=== PATIENT | female | born 1980 | race African-American/Black ===

== ENCOUNTER 2016-11-10 12:09 | Emergency (ER) | payer OTHER ==
[~2016-11-10] VITALS: Ht 160 cm; Wt 73.3 kg
[2016-11-10] MEDS ORDERED: XANAX2 MG PO (14:25)
[2016-11-10] MEDS ORDERED: HYDROXYUREA500 MG PO (14:26)
[2016-11-10] MEDS ORDERED: FOLIC ACID1 MG PO (14:26)
[2016-11-10 16:27] LABS: BASOPHIL COUNT 0.1 K/uL (0-0.1); EOSINOPHIL COUNT 0.1 K/uL (0-0.3); HEMATOCRIT 32.1 % (36.0-46.0); IMMATURE GRANULOCYTE (%) 0.4 % (0.0-0.7); INSTRUMENT ABS NEUTROPHIL CT 4.9 K/uL; MCH 32.5 PG (29.0-34.0); MCHC 34.3 G/DL (30.0-36.0); MEAN PLAT.VOLUME 9.1 uM^3 (9.5-12.4); MONOCYTE (%) 12.1 % (3-12); NEUTROPHIL (%) 61.4 % (45-76); NEUTROPHIL COUNT 4.9 K/uL (1.8-6.4); NRBC (%) 2.6 /100 WBC (0-0); PLATELET COUNT 439 K/uL (156-360); RBC DIS.WIDTH-CV 15.6 % (11.8-14.6); RBC DIS.WIDTH-SD 51.7 % (39-53); RED BLOOD COUNT 3.38 M/uL (3.80-5.20)
[2016-11-10 17:41] LABS: CHLORIDE 109 mEq/L (99-109); POTASSIUM 4.6 mEq/L (3.7-5.4); SODIUM 141 mEq/L (136-147)
[2016-11-10 17:44] LABS: GLUCOSE 76 mg/dL (70-99)
[2016-11-10 17:45] LABS: ANION GAP 8 MEQ/L (2-14)
[2016-11-10 17:47] LABS: ALKALINE PHOSPHATASE 93 IU/L (3-129); GFR ESTIMATE (CALCULATED) > 59 mL/min/
[2016-11-10 17:48] LABS: UREA NITROGEN (BUN) 8 mg/dL (9-23)
[2016-11-10] MEDS ORDERED: TRAMADOL HCL E100 M1 PO (18:17)
[2016-11-10] MEDS ORDERED: LORTAB 5-325 M1 EACH PO (18:33)
[2016-11-10 18:43] VITALS: BP 120/69
== END 2016-11-10 18:44 | disposition home or self-care (01) ==
LOC: EME 12:09
PROVIDERS: Nurse Practitioner Family
DX: M79.1 Myalgia (principal); K08.89 Other specified disorders of teeth and supporting structures; Z86.2 Personal history of diseases of the blood and blood-forming organs and certain disorders involving the immune mechanism; K03.81 Cracked tooth
CPT/HCPCS: 80053; 85025; 99281; 99285; J1200; J3010; J7030

== ENCOUNTER 2016-12-07 15:20 | Emergency (ER) | payer OTHER ==
[~2016-12-07] VITALS: Ht 160 cm; Wt 71.0 kg
[~2016-12-07 15:20] MED LIST: FOLIC ACID1 MG PO; HYDROXYUREA500 MG PO; LORTAB 5-325 M1 EACH PO; TRAMADOL HCL E100 M1 PO; XANAX2 MG PO
[2016-12-07 19:47] LABS: HEMATOCRIT 27.5 % (36.0-46.0); MCH 31.6 PG (29.0-34.0); MCHC 34.5 G/DL (30.0-36.0); MCV 91.4 FL (83-99); MEAN PLAT.VOLUME 8.7 uM^3 (9.5-12.4); NRBC (%) 0.4 /100 WBC (0-0); PLATELET COUNT 559 K/uL (156-360); RBC DIS.WIDTH-CV 12.8 % (11.8-14.6); RBC DIS.WIDTH-SD 41.7 % (39-53); RED BLOOD COUNT 3.01 M/uL (3.80-5.20); WHITE BLOOD COUNT 8.2 K/uL (4.1-10.2)
[2016-12-07 19:56] LABS: CHLORIDE 108 mEq/L (99-109); POTASSIUM 3.4 mEq/L (3.7-5.4); SODIUM 141 mEq/L (136-147)
[2016-12-07 19:57] LABS: GLUCOSE 90 mg/dL (70-99)
[2016-12-07 19:59] LABS: ANION GAP 6 MEQ/L (2-14)
[2016-12-07 20:01] LABS: GFR ESTIMATE (CALCULATED) > 59 mL/min/
[2016-12-07 20:02] LABS: UREA NITROGEN (BUN) 7 mg/dL (9-23)
[2016-12-07] MEDS ORDERED: PERCOCET 5/31 TABLET PO (20:42)
[2016-12-07 22:16] VITALS: BP 118/84
== END 2016-12-07 22:16 | disposition home or self-care (01) ==
LOC: EME 15:20
DX: D57.00 Hb-SS disease with crisis, unspecified (principal); Z97.5 Presence of (intrauterine) contraceptive device
CPT/HCPCS: 71020; 80048; 85027; 99281; 99284; J1200; J2270; J7030

== ENCOUNTER 2016-12-12 18:48 | Emergency (ER) | payer OTHER ==
[~2016-12-12] VITALS: Ht 160 cm; Wt 70.0 kg
[~2016-12-12 18:48] MED LIST changes: +PERCOCET 5/31 TABLET PO
[2016-12-12] MEDS ORDERED: DESYREL100 MG PO (19:22)
[2016-12-12 20:04] LABS: EOSINOPHIL (%) 1.1 % (0-5); EOSINOPHIL COUNT 0.1 K/uL (0-0.3); HEMATOCRIT 31.4 % (36.0-46.0); IMM.RETIC FRACTION 36.7 % (3-19); IMMATURE GRANULOCYTE (%) 0.3 % (0.0-0.7); INSTRUMENT ABS NEUTROPHIL CT 4.8 K/uL; LYMPHOCYTE COUNT 1.8 K/uL (1.0-2.8); MCH 31.4 PG (29.0-34.0); MCHC 34.1 G/DL (30.0-36.0); MCV 92.1 FL (83-99); MEAN PLAT.VOLUME 8.9 uM^3 (9.5-12.4); MONOCYTE (%) 10.4 % (3-12); MONOCYTE COUNT 0.8 K/uL (0-0.8); NEUTROPHIL (%) 63.9 % (45-76); NEUTROPHIL COUNT 4.8 K/uL (1.8-6.4); NRBC (%) 1.5 /100 WBC (0-0); PLATELET COUNT 448 K/uL (156-360); RBC DIS.WIDTH-CV 13.2 % (11.8-14.6); RBC DIS.WIDTH-SD 43.8 % (39-53); RED BLOOD COUNT 3.41 M/uL (3.80-5.20); RETIC HGB EQUIVALENT 34.9 (28-36); RETICULOCYTE COUNT 7.8 % (0.5-1.8); WHITE BLOOD COUNT 7.5 K/uL (4.1-10.2)
[2016-12-12 20:09] LABS: CHLORIDE 105 mEq/L (99-109); SODIUM 137 mEq/L (136-147)
[2016-12-12 20:10] LABS: POTASSIUM 4.6 mEq/L (3.7-5.4)
[2016-12-12 20:11] LABS: GLUCOSE 80 mg/dL (70-99)
[2016-12-12 20:13] LABS: ANION GAP 10 MEQ/L (2-14); TOTAL BILIRUBIN 0.8 mg/dL (0.0-1.0)
[2016-12-12 20:15] LABS: ALKALINE PHOSPHATASE 76 IU/L (3-129); GFR ESTIMATE (CALCULATED) > 59 mL/min/
[2016-12-12 20:16] LABS: UREA NITROGEN (BUN) 5 mg/dL (9-23)
[2016-12-12 20:17] LABS: DIRECT BILIRUBIN 0.3 mg/dL (0.0-0.3)
[2016-12-12] MEDS ORDERED: PERCOCET 10/1 TABLET PO (21:46)
[2016-12-12 22:22] VITALS: BP 113/60
== END 2016-12-12 22:27 | disposition home or self-care (01) ==
LOC: EME 18:48
PROVIDERS: Emergency Medicine
DX: D57.00 Hb-SS disease with crisis, unspecified (principal); M54.5 Low back pain; Z91.81 History of falling
CPT/HCPCS: 71010; 80048; 80076; 85025; 85045; 87040; 99281; 99285; J1200; J1885; J2270; J2405; J7030

== ENCOUNTER 2017-01-03 08:02 | Emergency (ER) | payer OTHER ==
[~2017-01-03] VITALS: Ht 160 cm; Wt 68.7 kg
[~2017-01-03 08:02] MED LIST changes: +DESYREL100 MG PO; +PERCOCET 10/1 TABLET PO
[2017-01-03 09:38] LABS: ADD MIUA? NO; BILIRUBIN NEGATIVE; BLOOD NEGATIVE; COLOR STRAW ((YELLOW)); GLUCOSE (STRIP) NEGATIVE; KETONES NEGATIVE; LEUKOCYTES NEGATIVE; NITRITE NEGATIVE; PROTEIN (STRIP) NEGATIVE; SPECIFIC GRAVITY 1.006 (1.000-1.030); UROBILINOGEN 0.2 MG/DL (0.2-1.0)
[2017-01-03 10:05] LABS: HEMATOCRIT 25.7 % (36.0-46.0); MCH 30.7 PG (29.0-34.0); MCHC 34.6 G/DL (30.0-36.0); MCV 88.6 FL (83-99); MEAN PLAT.VOLUME 8.7 uM^3 (9.5-12.4); NRBC (%) 0.2 /100 WBC (0-0); PLATELET COUNT 490 K/uL (156-360); RBC DIS.WIDTH-CV 13.1 % (11.8-14.6); RBC DIS.WIDTH-SD 42.2 % (39-53); RETIC HGB EQUIVALENT 32.8 (28-36)
[2017-01-03 10:09] LABS: RETICULOCYTE COUNT 5.9 % (0.5-1.8)
[2017-01-03 10:16] LABS: CHLORIDE 108 mEq/L (99-109); SODIUM 145 mEq/L (136-147)
[2017-01-03 10:18] LABS: GLUCOSE 93 mg/dL (70-99)
[2017-01-03 10:19] LABS: ANION GAP 9 MEQ/L (2-14)
[2017-01-03 10:20] LABS: TOTAL BILIRUBIN 0.9 mg/dL (0.0-1.0)
[2017-01-03 10:22] LABS: ALKALINE PHOSPHATASE 60 IU/L (3-129); GFR ESTIMATE (CALCULATED) > 59 mL/min/
[2017-01-03 10:23] LABS: UREA NITROGEN (BUN) 6 mg/dL (9-23)
[2017-01-03 10:25] LABS: LIPASE 21 U/L (1.0-51.0)
[2017-01-03] MEDS ORDERED: BENADRYL25 MG PO (10:40)
[2017-01-03] MEDS ORDERED: PERCOCET 5/31 TABLET PO (10:40)
[2017-01-03 10:53] VITALS: BP 110/82
[2017-01-03 16:08] LABS: LACTATE DEHYDROGENASE 174 IU/L (20-246)
== END 2017-01-03 10:58 | disposition home or self-care (01) ==
LOC: EME 08:02
PROVIDERS: Nurse Practitioner Family
DX: D57.00 Hb-SS disease with crisis, unspecified (principal); S39.012A Strain of muscle, fascia and tendon of lower back, initial encounter; Z87.891 Personal history of nicotine dependence; W18.30XA Fall on same level, unspecified, initial encounter
CPT/HCPCS: 71020; 72100; 80053; 81003; 83615; 83690; 85027; 85045; 99281; 99285; J1200; J1885; J2270; J2405; J7030

== ENCOUNTER 2017-02-07 14:50 | Emergency (ER) | payer SELFPAY ==
[~2017-02-07] VITALS: Ht 160 cm; Wt 66.9 kg
[~2017-02-07 14:50] MED LIST changes: +BENADRYL25 MG PO
[2017-02-07 19:07] LABS: HEMATOCRIT 31.9 % (36.0-46.0); IMM.RETIC FRACTION 31.2 % (3-19); MCH 30.5 PG (29.0-34.0); MCHC 34.5 G/DL (30.0-36.0); MCV 88.4 FL (83-99); MEAN PLAT.VOLUME 8.8 uM^3 (9.5-12.4); NRBC (%) 0.4 /100 WBC (0-0); PLATELET COUNT 484 K/uL (156-360); RBC DIS.WIDTH-CV 14.4 % (11.8-14.6); RBC DIS.WIDTH-SD 45.8 % (39-53); RED BLOOD COUNT 3.61 M/uL (3.80-5.20); RETIC HGB EQUIVALENT 34.4 (28-36); RETICULOCYTE COUNT 7.1 % (0.5-1.8)
[2017-02-07 19:17] LABS: CHLORIDE 106 mEq/L (99-109); POTASSIUM 3.5 mEq/L (3.7-5.4); SODIUM 139 mEq/L (136-147)
[2017-02-07 19:19] LABS: GLUCOSE 82 mg/dL (70-99)
[2017-02-07 19:21] LABS: ANION GAP 9 MEQ/L (2-14); TOTAL BILIRUBIN 0.9 mg/dL (0.0-1.0)
[2017-02-07 19:23] LABS: ALKALINE PHOSPHATASE 63 IU/L (3-129); GFR ESTIMATE (CALCULATED) > 59 mL/min/
[2017-02-07 19:24] LABS: UREA NITROGEN (BUN) 5 mg/dL (9-23)
[2017-02-07] MEDS ORDERED: PERCOCET 5/31 TABLET PO (19:26)
[2017-02-07] MEDS ORDERED: TORADOL10 MG PO (19:26)
[2017-02-07 20:21] VITALS: BP 95/65
== END 2017-02-07 20:31 | disposition home or self-care (01) ==
LOC: EME 14:50
PROVIDERS: Emergency Medicine
DX: D57.00 Hb-SS disease with crisis, unspecified (principal); Z87.891 Personal history of nicotine dependence; Z90.49 Acquired absence of other specified parts of digestive tract
CPT/HCPCS: 80053; 85027; 85045; 99281; 99284; J1200; J1885; J3010; J7030